=== PATIENT | female | born 1960 | race African-American/Black ===

== ENCOUNTER 2018-05-23 19:53 | Inpatient (IN) | payer MEDICARE, MEDICAID ==
[~2018-05-23] VITALS: Ht 165.1 cm; Wt 76.2 kg
[2018-05-23] MEDS ORDERED: PALI3 PO (20:29)
[2018-05-23 20:44] LABS: BASOPHILS % (AUTO) 0.7 % (0.0-2.0); EOSINOPHILS % (AUTO) 0 % (1.0-6.0); HEMATOCRIT 41.4 % (36-46); HEMOGLOBIN 14.4 g/dL (12.0-16.0); LYMPHOCYTES # (AUTO) 2.3 K/uL (1.0-4.8); LYMPHOCYTES % (AUTO) 26.3 % (22.0-44.0); MEAN CORPUSCULAR HGB CONC 34.8 G/dL (31.0-37.0); MEAN CORPUSCULAR VOLUME 86 fL (80-100); MONOCYTES # (AUTO) 0.7 K/uL (0.1-1.0); MONOCYTES % (AUTO) 7.8 % (2.0-9.0); NEUTROPHILS # (AUTO) 5.6 K/uL (1.8-7.7); NEUTROPHILS % (AUTO) 65.2 % (40.0-70.0); PLATELET COUNT (AUTO) 308 K/uL (150-450); RED CELL DISTRIBUTION WIDTH 14.7 % (11.5-14.5)
[2018-05-23 20:53] LABS: ANION GAP 9 mmol/L (8-16); CALCIUM, TOTAL 9.4 mg/dL (8.8-10.5); CARBON DIOXIDE 28 mmol/L (22-29); CHLORIDE 101 mmol/L (98-107); CREATININE 0.93 mg/dL (0.60-1.30); GLOMERULAR FILTR. RATE CALC > 60 mL/min (>60); GLUCOSE,RANDOM 97 mg/dL (70-110); POTASSIUM 4.1 mmol/L (3.5-5.1); SODIUM SERUM 138 mmol/L (136-145); UREA NITROGEN, BLOOD 16 mg/dL (7-18)
[2018-05-23 20:58] LABS: ALANINE AMINOTRANSFERASE 18 U/L (12-78); ALBUMIN 3.7 g/dL (3.4-5.0); ALKALINE PHOSPHATASE 90 U/L (46-116); ASPARTATE AMINOTRANSFERASE 13 U/L (15-37); BILIRUBIN,TOTAL 0.4 mg/dL (0.1-1.0); TOTAL PROTEIN, SERUM 7.6 g/dL (6.4-8.2)
[2018-05-24] MEDS ORDERED: LORazepam 2 MG TABLET PO PRN
[2018-05-24] MEDS ORDERED: HALOPERIDOL 5 MG TABLET PO PRN
[2018-05-24] MEDS ORDERED: ZOLPIDEM TARTRATE 10 MG TABLET PO PRN
[2018-05-24 03:32] VITALS: BP 132/73
[2018-05-24] MEDS ORDERED: LOPERAMIDE HCL 2 MG CAPSULE PO PRN (05:45)
[2018-05-24] MEDS ORDERED: CloNIDine HCL 0.1 MG TABLET PO PRN (05:45)
[2018-05-24] MEDS ORDERED: PETROLATUM,WHITE 71 GM JELLY TP PRN (05:45)
[2018-05-24] MEDS ORDERED: DOCUSATE SODIUM 100 MG CAPSULE PO PRN (05:45)
[2018-05-24] MEDS ORDERED: MAG HYDROX/AL HYDROX/SIMETH ES 30 ML SUSPENSION UDCUP PO PRN (05:45)
[2018-05-24] MEDS ORDERED: MAGNESIUM HYDROXIDE SUSPENSION 30 ML UDCUP PO PRN (05:45)
[2018-05-24] MEDS ORDERED: ONDANSETRON HCL 4 MG TABLET PO PRN (05:45)
[2018-05-24] MEDS ORDERED: ALBUTEROL SULFATE HFA 90 MCG/PUFF 8 GM INHALER IH PRN (05:45)
[2018-05-24 08:35] VITALS: BP 101/60
[2018-05-24 09:17] LABS: HEMOGLOBIN A1C 5.8 % (4.5-6.2)
[2018-05-24] MEDS: ACETAMINOPHEN 325 MG TABLET PO PRN ×2 (09:26→19:55)
[2018-05-24 09:40] LABS: CHOL/HDL RATIO 4.1 (3.9-5.7); FREE T4 (FREE THYROXINE) 1.06 ng/dL (0.76-1.46); THYROID STIMULATING HORMONE 2.12 uIU/mL (0.36-3.74)
[2018-05-24] MEDS: PALIPERIDONE 3 MG ER TABLET PO SCH (10:21)
[2018-05-24 16:00] VITALS: BP 125/53
[2018-05-24] MEDS: IBUPROFEN 400 MG TABLET PO PRN (16:01)
[2018-05-24] MEDS ORDERED: COLLOIDAL OATMEAL/DIMETH 227 GM LOTION TP PRN (16:30)
[2018-05-25 05:40] VITALS: BP 132/132
[2018-05-25] MEDS: ACETAMINOPHEN 325 MG TABLET PO PRN (05:42)
[2018-05-25 08:29] VITALS: BP 114/61
[2018-05-25] MEDS ORDERED: PALIPERIDONE PALMITATE 234 MG/1.5 ML SYRINGE IM ONE (09:00)
[2018-05-25] MEDS: PALIPERIDONE 3 MG ER TABLET PO SCH (09:05)
[2018-05-25 16:29] VITALS: BP 137/67
[2018-05-26 00:05] VITALS: BP 117/90
[2018-05-26] MEDS: ACETAMINOPHEN 325 MG TABLET PO PRN (00:05)
[2018-05-26] MEDS: IBUPROFEN 400 MG TABLET PO PRN (04:29)
[2018-05-26 08:27] VITALS: BP 102/53
[2018-05-26] MEDS: PALIPERIDONE 3 MG ER TABLET PO SCH (09:16)
[2018-05-26 16:30] VITALS: BP 117/64
[2018-05-27 01:24] VITALS: BP 113/63
[2018-05-27 08:00] VITALS: BP 108/70
[2018-05-27] MEDS: PALIPERIDONE 3 MG ER TABLET PO SCH (08:34)
[2018-05-27 16:28] VITALS: BP 142/83
[2018-05-28 06:38] VITALS: BP 116/60
[2018-05-28] MEDS: PALIPERIDONE 3 MG ER TABLET PO SCH (08:05)
[2018-05-28 08:24] VITALS: BP 102/68
[2018-05-28] MEDS ORDERED: PALI156D IM (10:57)
[2018-05-29] MEDS ORDERED: PALIPERIDONE PALMITATE 156 MG/ML SYRINGE IM ONE (09:00)
== END 2018-05-28 13:30 | disposition home or self-care (01) | DRG 885 ==
LOC: EMS 19:54 → B2S 05-24 00:46
PROVIDERS: ADMIT Psychiatry & Neurology Child & Adolescent Psychiatry; ATTEND Psychiatry & Neurology Child & Adolescent Psychiatry
DX: F20.0 Paranoid schizophrenia (principal); E78.5 Hyperlipidemia, unspecified; F17.200 Nicotine dependence, unspecified, uncomplicated; F32.9 Major depressive disorder, single episode, unspecified; Z71.6 Tobacco abuse counseling; Z59.0 Homelessness
CPT/HCPCS: 83036; 84439; 84443; 99285; G0480

== ENCOUNTER 2018-11-16 15:10 | Emergency (ER) | payer MEDICARE, MEDICAID ==
[~2018-11-16 15:10] MED LIST: PALI156D IM; PALI3 PO
== END 2018-11-16 18:30 | disposition left against medical advice (07) ==
LOC: EMS 15:11
DX: F29 Unspecified psychosis not due to a substance or known physiological condition (principal); Z53.21 Procedure and treatment not carried out due to patient leaving prior to being seen by health care provider

== ENCOUNTER 2018-11-17 15:48 | Inpatient (IN) | payer MEDICARE, MEDICAID ==
[~2018-11-17] VITALS: Ht 165.1 cm; Wt 79.8 kg
[2018-11-17] MEDS ORDERED: LORazepam 2 MG TABLET PO PRN (19:45)
[2018-11-17] MEDS ORDERED: HALOPERIDOL 5 MG TABLET PO PRN (19:45)
[2018-11-17 20:00] VITALS: BP 121/82
[2018-11-17] MEDS ORDERED: LOPERAMIDE HCL 2 MG CAPSULE PO PRN (20:00)
[2018-11-17] MEDS ORDERED: CloNIDine HCL 0.1 MG TABLET PO PRN (20:00)
[2018-11-17] MEDS ORDERED: MAG HYDROX/AL HYDROX/SIMETH ES 30 ML SUSPENSION UDCUP PO PRN (20:00)
[2018-11-17] MEDS ORDERED: ACETAMINOPHEN 325 MG TABLET PO PRN (20:00)
[2018-11-17] MEDS ORDERED: DOCUSATE SODIUM 100 MG CAPSULE PO PRN (20:00)
[2018-11-17] MEDS ORDERED: MAGNESIUM HYDROXIDE SUSPENSION 30 ML UDCUP PO PRN (20:00)
[2018-11-17] MEDS ORDERED: PETROLATUM,WHITE 71 GM JELLY TP PRN (20:00)
[2018-11-17] MEDS ORDERED: PNEUMOCOCCAL VACCINE POLYVALENT 0.5 ML VIAL [PPSV23] IM ONE (21:30)
[2018-11-18 00:22] VITALS: BP 112/75
[2018-11-18 08:18] LABS: BASOPHILS % (AUTO) 0.2 % (0.0-2.0); EOSINOPHILS % (AUTO) 0 % (1.0-6.0); HEMATOCRIT 42.5 % (36-46); LYMPHOCYTES # (AUTO) 1.7 K/uL (1.0-4.8); LYMPHOCYTES % (AUTO) 24.2 % (22.0-44.0); MEAN CORPUSCULAR HEMOGLOBIN 29.4 pg (26.0-34.0); MEAN CORPUSCULAR HGB CONC 32.9 G/dL (31.0-37.0); MEAN CORPUSCULAR VOLUME 89 fL (80-100); MONOCYTES # (AUTO) 0.4 K/uL (0.1-1.0); MONOCYTES % (AUTO) 5.6 % (2.0-9.0); PLATELET COUNT (AUTO) 258 K/uL (150-450); RED BLOOD CELL COUNT(AUTO) 4.76 MIL/uL (4.00-5.20); RED CELL DISTRIBUTION WIDTH 14.4 % (11.5-14.5)
[2018-11-18 08:27] VITALS: BP 110/69
[2018-11-18 09:15] LABS: HEMOGLOBIN A1C 5.9 % (4.5-6.2)
[2018-11-18 09:48] LABS: ALANINE AMINOTRANSFERASE 14 U/L (12-78); ALBUMIN 3.1 g/dL (3.4-5.0); ALKALINE PHOSPHATASE 78 U/L (46-116); ANION GAP 8 mmol/L (8-16); ASPARTATE AMINOTRANSFERASE 17 U/L (15-37); BILIRUBIN,TOTAL 0.3 mg/dL (0.1-1.0); CALCIUM, TOTAL 8.4 mg/dL (8.8-10.5); CARBON DIOXIDE 27 mmol/L (22-29); CHLORIDE 105 mmol/L (98-107); CHOL/HDL RATIO 3.3 (3.9-5.7); CHOLESTEROL 151 mg/dL (131-200); CREATININE 0.71 mg/dL (0.60-1.30); FREE T4 (FREE THYROXINE) 0.92 ng/dL (0.76-1.46); GLOMERULAR FILTR. RATE CALC > 60 mL/min (>60); GLUCOSE,RANDOM 107 mg/dL (70-110); HDL CHOLESTEROL 46 mg/dL (40-60); LDL CHOL (CALC.) 96 mg/dL (0-130); POTASSIUM 3.9 mmol/L (3.5-5.1); SODIUM SERUM 140 mmol/L (136-145); THYROID STIMULATING HORMONE 1.62 uIU/mL (0.36-3.74); TOTAL PROTEIN, SERUM 6.7 g/dL (6.4-8.2); TRIGLYCERIDES 44 mg/dL (15-150); UREA NITROGEN, BLOOD 13 mg/dL (7-18)
[2018-11-18] MEDS ORDERED: PALIPERIDONE PALMITATE 234 MG/1.5 ML SYRINGE IM ONE (12:15)
[2018-11-18 16:32] VITALS: BP 121/67
[2018-11-18] MEDS: MIRTAZAPINE 15 MG TABLET PO SCH (20:28)
[2018-11-19 01:28] VITALS: BP 117/73
[2018-11-19 04:22] VITALS: BP 140/89
[2018-11-19] MEDS: IBUPROFEN 400 MG TABLET PO PRN ×2 (04:23→17:56)
[2018-11-19 07:51] VITALS: BP 134/72
[2018-11-19 09:16] VITALS: BP 134/72
[2018-11-19 16:06] VITALS: BP 105/67
[2018-11-19 17:55] VITALS: BP 112/68
[2018-11-19] MEDS: MIRTAZAPINE 15 MG TABLET PO SCH (20:39)
[2018-11-19] MEDS: ZOLPIDEM TARTRATE 10 MG TABLET PO PRN (21:02)
[2018-11-20 01:39] VITALS: BP 116/70
[2018-11-20] MEDS: IBUPROFEN 400 MG TABLET PO PRN ×2 (04:16→13:37)
[2018-11-20 08:09] VITALS: BP 116/89
[2018-11-20 13:37] VITALS: BP 112/82
[2018-11-20 16:23] VITALS: BP 139/69
[2018-11-20] MEDS: BACITRACIN 28.4 GM OINTMENT TP SCH (17:00)
[2018-11-20] MEDS: MIRTAZAPINE 15 MG TABLET PO SCH (21:10)
[2018-11-21 01:30] VITALS: BP 121/88
[2018-11-21] MEDS: IBUPROFEN 400 MG TABLET PO PRN (01:40)
[2018-11-21 08:08] VITALS: BP 110/64
[2018-11-21] MEDS: BACITRACIN 28.4 GM OINTMENT TP SCH ×2 (08:44→16:35)
[2018-11-21 16:15] VITALS: BP 117/61
[2018-11-21] MEDS: MIRTAZAPINE 15 MG TABLET PO SCH (20:31)
[2018-11-21] MEDS: ZOLPIDEM TARTRATE 10 MG TABLET PO PRN (20:51)
[2018-11-22 02:12] VITALS: BP 126/81
[2018-11-22] MEDS: IBUPROFEN 400 MG TABLET PO PRN (02:15)
[2018-11-22 08:04] VITALS: BP 117/61
[2018-11-22] MEDS: BACITRACIN 28.4 GM OINTMENT TP SCH ×2 (09:08→16:39)
[2018-11-22 16:24] VITALS: BP 132/76
[2018-11-22] MEDS: MIRTAZAPINE 15 MG TABLET PO SCH (20:27)
[2018-11-22] MEDS: ZOLPIDEM TARTRATE 10 MG TABLET PO PRN (21:22)
[2018-11-23 05:09] VITALS: BP 116/72
[2018-11-23 08:20] VITALS: BP 122/68
[2018-11-23] MEDS: BACITRACIN 28.4 GM OINTMENT TP SCH ×2 (08:50→16:45)
[2018-11-23 16:22] VITALS: BP 100/60
[2018-11-23] MEDS: MIRTAZAPINE 15 MG TABLET PO SCH (20:23)
[2018-11-23] MEDS: ZOLPIDEM TARTRATE 10 MG TABLET PO PRN (22:12)
[2018-11-24 02:36] VITALS: BP 113/69
[2018-11-24 06:18] VITALS: BP 117/77
[2018-11-24] MEDS: IBUPROFEN 400 MG TABLET PO PRN (06:20)
[2018-11-24 08:23] VITALS: BP 137/75
[2018-11-24] MEDS: BACITRACIN 28.4 GM OINTMENT TP SCH ×2 (08:43→16:41)
[2018-11-24 16:06] VITALS: BP 111/63
[2018-11-24] MEDS: MIRTAZAPINE 15 MG TABLET PO SCH (20:11)
[2018-11-25 00:52] VITALS: BP 112/68
[2018-11-25 05:20] VITALS: BP 133/79
[2018-11-25] MEDS: IBUPROFEN 400 MG TABLET PO PRN (05:25)
[2018-11-25 08:13] VITALS: BP 113/64
[2018-11-25] MEDS: BACITRACIN 28.4 GM OINTMENT TP SCH ×2 (08:34→17:33)
[2018-11-25 16:14] VITALS: BP 128/76
[2018-11-25] MEDS: MIRTAZAPINE 15 MG TABLET PO SCH (21:00)
[2018-11-26 04:38] VITALS: BP 128/82
[2018-11-26 06:19] VITALS: BP 122/83
[2018-11-26] MEDS: IBUPROFEN 400 MG TABLET PO PRN (06:33)
[2018-11-26 08:15] VITALS: BP 141/85
[2018-11-26] MEDS: BACITRACIN 28.4 GM OINTMENT TP SCH ×2 (08:27→17:18)
[2018-11-26 16:11] VITALS: BP 109/63
[2018-11-26] MEDS: MIRTAZAPINE 15 MG TABLET PO SCH (20:53)
[2018-11-27 05:20] VITALS: BP 122/83
[2018-11-27 09:15] VITALS: BP 122/60
[2018-11-27] MEDS: BACITRACIN 28.4 GM OINTMENT TP SCH ×2 (10:00→17:31)
[2018-11-27 16:19] VITALS: BP 106/65
[2018-11-27] MEDS: MIRTAZAPINE 15 MG TABLET PO SCH (20:23)
[2018-11-27] MEDS ORDERED: MIRT15 PO (23:11)
[2018-11-28 04:20] VITALS: BP 120/63
[2018-11-28] MEDS ORDERED: BACI30OI6 TP (08:19)
[2018-11-28 08:22] VITALS: BP 110/66
[2018-11-28] MEDS: BACITRACIN 28.4 GM OINTMENT TP SCH (08:28)
== END 2018-11-28 09:37 | disposition home or self-care (01) | DRG 885 ==
LOC: B2X 19:44
PROVIDERS: ADMIT Psychiatry & Neurology Psychiatry; ATTEND Psychiatry & Neurology Psychiatry
DX: F20.0 Paranoid schizophrenia (principal); E83.51 Hypocalcemia; S30.810A Abrasion of lower back and pelvis, initial encounter; X58.XXXA Exposure to other specified factors, initial encounter; F17.200 Nicotine dependence, unspecified, uncomplicated; E78.5 Hyperlipidemia, unspecified; M25.50 Pain in unspecified joint; Z79.899 Other long term (current) drug therapy; Z59.0 Homelessness; Z71.6 Tobacco abuse counseling; Y93.89 Activity, other specified; Y92.89 Other specified places as the place of occurrence of the external cause; Y99.8 Other external cause status
CPT/HCPCS: 83036; 84439; 84443; 90686; 90732

== ENCOUNTER 2020-11-16 07:09 | Emergency (ER) | payer MEDICARE, OTHER ==
[~2020-11-16] VITALS: Ht 170.2 cm; Wt 0.6 kg
[~2020-11-16 07:09] MED LIST changes: +BACI30OI6 TP; +MIRT-89 PO; -PALI156D IM; -PALI3 PO
[2020-11-16] MEDS ORDERED: ACETAMINOPHEN 500 MG TABLET PO ONE (08:00)
[2020-11-16 08:13] VITALS: BP 122/74
== END 2020-11-16 09:11 | disposition left against medical advice (07) ==
LOC: EMS 07:10
DX: M79.18 Myalgia, other site (principal); F17.210 Nicotine dependence, cigarettes, uncomplicated